=== PATIENT | female | born 1975 | race Caucasian/White ===

== ENCOUNTER → 2017-11-24 07:00 | Outpatient (CLI) | payer BC, SELFPAY ==
--- NOTE | 2017-11-24 07:00 | HPBI_ITS ---
MAMMOGRAPHY - BILATERAL SCREENING REASON FOR EXAM: Female, 42 years old. Routine annual screening examination. PERTINENT HISTORY: Non-contributory. TECHNIQUE: Digital bilateral breast martita (3D mammographic acquisition) in the CC and MLO projections. 2-D mediolateral oblique (MLO) and craniocaudad (CC) views of both breasts were obtained. CAD: Full Field Digital Mammography with Computer Added Detection was performed. COMPARISON: Comparison is made with prior study dated June 17, 2013. FINDINGS: Breast Composition: The breasts are almost entirely fatty. There is a stable 1 cm x 8.7 mm well-defined nodule in the mid retroareolar region of the right breast. This has increased slightly in size since prior examination and may represent a small cyst. Correlation with ultrasound is recommended. Stable small bilateral axillary lymph nodes. No other significant abnormalities are identified. HPBI/SCREENING MAMM (CAD), BILAT IMPRESSION: Slight enlargement of the well-defined nodular density in the mid retroareolar region of the right breast as described. Correlation with ultrasound is recommended. ASSESSMENT CATEGORY: BIRADS Category 0: Incomplete. Need additional imaging evaluation. A letter regarding these results will be sent to the patient by the facility within 30 days. Approximately 10% of breast cancers are not detected by mammography. A normal mammogram should not delay biopsy of a clinically suspicious abnormality. [id number] Electronically Signed: Hector Stringer MD at 8:53 EST Tel [phone], Service support ,
== END ==
PROVIDERS: Family Provider Family Medicine; PCP Family Medicine; Visit Provider Obstetrics & Gynecology
DX: Z12.31 Encounter for screening mammogram for malignant neoplasm of breast (principal)
CPT/HCPCS: 77063; 77067

== ENCOUNTER → 2017-11-27 07:40 | Outpatient (CLI) | payer BC, SELFPAY ==
--- NOTE | 2017-11-27 07:45 | US_ITS ---
STUDY: ULTRASOUND BREAST - RIGHT REASON FOR EXAM: Female, 42 years old. Abnormal screening mammogram. TECHNIQUE: Axial and longitudinal images of the RIGHT breast were performed with a high resolution ultrasound transducer. COMPARISON: Comparison is made with prior mammogram dated November 24, 2017. FINDINGS: RIGHT Breast: There is a 7 mm x 5 mm x 5 mm cyst at the 12:00 position breast in the retroareolar region. This corresponds to the mammographic findings. US/Breast Limited Unilateral IMPRESSION: The mammographic abnormality corresponds to a 7 mm x 5 mm x 5 mm cyst. Routine annual mammographic follow-up is recommended. ASSESSMENT CATEGORY: BIRADS Category 2: Benign. A letter regarding these results will be sent to the patient by the facility within 30 days. Electronically Signed: Hector Stringer MD at 9:31 EST Tel [phone], Service support ,
== END ==
PROVIDERS: Family Provider Family Medicine; PCP Family Medicine; Visit Provider Obstetrics & Gynecology
DX: N63.0 Unspecified lump in unspecified breast (principal)
CPT/HCPCS: 76642

== ENCOUNTER 2023-06-06 12:13 | Emergency (ER) | payer MEDICAID, SELFPAY ==
[2023-06-06 12:14] VITALS: BP 139/73; PULSE 62; RESP 14; TEMP 36.2; O2SAT 100; BMI 35.2
--- NOTE | 2023-06-06 14:30 | EKG12_ITS ---
Test Reason : CP Blood Pressure : / mmHG Vent. Rate : 063 BPM Atrial Rate : 063 BPM P-R Int : 152 ms QRS Dur : 082 ms QT Int : 414 ms P-R-T Axes : 003 -03 016 degrees QTc Int : 423 ms Normal sinus rhythm Normal ECG Confirmed by TIFFANIE TRIPLETT, JESSICA ([id number]), digital editor GALDINO RANDLE ([id number]) on 07/14/2023 12:51:10 PM Referred By: ETELVINA/ZENIA Confirmed By:SHARON MORENO MD
[2023-06-06] MEDS: Aspirin 81 MG TAB.CHEW 324 MG PO (14:41)
--- NOTE | 2023-06-06 14:43 | RAD_ITS ---
STUDY: X-RAY CHEST REASON FOR EXAM: Female, 48 years old. Chest pain . Tingling of the upper extremities and shortness of breath. TECHNIQUE: PA and lateral views of the chest. COMPARISON: None. FINDINGS: EKG electrodes are seen. The lungs are clear and expanded. Mild elevation of the anterior aspect of the right hemidiaphragm. There is no demonstrated pleural abnormality. Normal size heart. Normal mediastinum and delfino. Normal visualized pulmonary arteries. Normal visualized aortic arch and descending thoracic aorta. There is demineralization of the osseous structures. Normal visualized ribs, clavicles, and shoulders. There is no demonstrated abnormality of the visualized soft tissue structures of the upper abdomen. RAD/Chest PA and Lateral IMPRESSION: No acute abnormality is seen. Electronically Signed: Hector Stringer MD at 14:57 EDT ,
[2023-06-06 14:57] LABS: Absolute Lymphocyte Count 5.54 X10^3/uL (0.83-4.51); Absolute Neutrophil Count 6.3 X10^3/uL (2.0-7.7); Basophil# 0.09 X10^3/uL; Basophil% 0.7 % (0-1); Eosinophil# 0.22 X10^3/uL; Eosinophils% 1.7 % (0-5); Hematocrit 46.7 % (37-47); Lymphocyte # 5.54 X10^3/ul (0.83-4.51); Lymphocyte % 42.5 % (19-41); Mean Corp Hgb Conc 32.1 g/dL (32-36); Mean Corpuscular Hgb 28.2 pg (27.0-32.0); Mean Corpuscular Volume 87.8 fL (81-99); Mean Platelet Vol. 9.8 fl (6.2-12.0); Monocyte# 0.73 X10^3/uL; Monocyte% 5.6 % (0-10); NRBC Flagged by Analyzer 0 % (0-5); Neutrophil # 6.34 X10^3/uL (2.7-7.7); Neutrophil % 48.7 % (47-70); POSITIVE DIFFERENTIAL YES; Platelet Count 389 K/mm3 (150-450); RBC Distribution Width CV 13.2 % (11.6-14.6); RBC Distribution Width SD 42.5 fl (35.1-43.9); Red Blood Count 5.32 M/mm3 (4.2-5.4)
[2023-06-06 15:05] LABS: Differential Indicated SCAN CRITERIA MET
[2023-06-06 15:15] LABS: Anion Gap 7 (5-15); BUN 9 mg/dL (7-18); BUN/Creat Ratio 15.9 RATIO (10-20); Calcium,Total 9.1 mg/dL (8.5-10.1); Chloride 104 mmol/L (98-107); Creatinine, Serum 0.57 mg/dL (0.55-1.02); EST Glomerular Filtration Rate 122 mL/min (>60); Est Glom Filt Rate - Afr Amer 148 mL/min (>60); Estimated Creatinine Clearance 97.54 ml/min; Glucose 91 mg/dL (74-106); Potassium 3.6 mmol/L (3.5-5.1); Sodium Level 140 mmol/L (136-145); Troponin-I HS (w/2H Reflex) < 3 pg/mL (3.0-54.0)
[2023-06-06 15:42] LABS: Differential Comment SCANNED
[2023-06-06 15:48] VITALS: BP 124/79; PULSE 68; RESP 14; O2SAT 95
--- NOTE | 2023-06-06 16:20 | ED.VIS.CHEST ---
HPI History of Present Illness Chief Complaint: Chest Pain Detail of Chief Complaint: Sharp midsternal chest pain Informant: patient Onset/Context/Timing Onset: Today and Hours (Approximately 10:30 AM) Activity at onset: sudden Timing: Continuous and Waxes and wanes Quality: Positive for Burning (She now complains of a burning sensation through to her back.), Sharp (Initially sharp and stabbing) and Stabbing Location: Substernal Current Severity: Mild Maximum Severity: Severe Worsened By: Nothing Relieved By: Nothing Associated Symptoms: Positive for Nausea, Diaphoresis and Dyspnea; Negative for Vomiting, Cough, Fever, Lightheadedness, Acid Reflux or Palpitations Narrative Narrative: Patient is a 48-year-old woman with no significant past medical history. She is a non-smoker. There is no family history of coronary disease at a young age. She has no risk factors for coronary disease. She denies history of GERD, reflux, hiatal hernia, peptic ulcer disease. Denies black or maroon stool. She had Maltese toast for breakfast. She denies intolerance to greasy or fried foods. Mother had gallbladder removed. She denies problems with her about gallbladder. She denies recent upper respiratory tract symptoms. She denies pleuritic chest pain. She denies history of PE. She denies leg pain, swelling or discoloration. She denies recent immobilization or surgery. She denies black or maroon-colored stool. She denies urologic symptoms. Patient states she was sitting when her symptoms started. Was a sharp pain mid chest began to dissipate. Within 5 minutes of onset pain got worse. She now complains of a burning associate in the back of her back. She did have a panic attack. She did report diaphoresis and shortness of breath. Prior Similar Symptoms: No Recent Illness/Hospitalization: No CVD Risk Factors: Negative for Hypertension, Diabetes, Hypercholesterolemia, Family History 1' </=55 or Smoking PE Risk Factors: Negative for Recent Travel/Surgery, Recent Immobilization, Prior DVT or PE, Cancer or OCP + Smoking + >/=35 TAD Risk Factors: Negative for Marfan's Syndrome, Hypertension or Family History PFSH PFSH Home Medications L.acidoph, paracasei,B. lactis 10 billion cell capsule 1 ea PO DAILY 07/11/16 [History Last Taken Unknown] multivitamin with folic acid 400 mcg tablet (Thera) 1 tab PO DAILY 07/11/16 [History Last Taken Unknown] vitamins B1 2.5 mg-B2 2.5 mg-niacin 5 mg-B12 100 mcg-protease tablet (B-Complex With B-12) 1 ea PO QMONTH 07/11/16 [History Last Taken Unknown] docusate sodium 100 mg capsule (DOK) 100 mg PO BID PRN PRN Constipation ##60 07/15/16 [Rx Last Taken Unknown] estradiol 2 mg tablet (Estrace) 2 mg PO DAILY #100 tabs 07/15/16 [Rx Last Taken Unknown] oxycodone 5 mg tablet 5 - 10 mg (1 - 2 x 5 mg) PO Q4H PRN PRN Mod-Severe Pain (-07/15) ##20 07/15/16 [Rx Last Taken Unknown] Allergy/AdvReac Type Severity Reaction Status Date / Time tramadol AdvReac Other Verified 06/06/23 12:14 Social History (Updated 06/06/23 @ 16:[address] Rishi Perales MD) household members: spouse Smoking Status: Former smoker details: Patient states she cannot drink because she becomes sick after 1 or 2 sips. substance use type: does not use ROS ROS ED Constitutional Constitutional ED: Denies chills, fever(s), subjective, sweats or weight loss Eyes Eyes: Reports none ENT ENT ED: Denies ear pain, rhinorrhea or sore throat Cardiovascular Cardiovascular: Reports as per HPI; Denies orthopnea or paroxysmal nocturnal dyspnea Respiratory/Chest Respiratory/Chest: Reports dyspnea; Denies cough, dyspnea on exertion, orthopnea or paroxysmal nocturnal dyspnea Gastrointestinal Gastrointestinal: Denies abdominal pain, constipation, diarrhea, melena or vomiting Genitourinary Genitourinary ED: Denies dysuria, hematuria or urinary frequency Musculoskeletal Musculoskeletal: Reports back pain; Denies arthralgias, myalgias or neck pain Integumentary Denies abscess, Abrasions or rash Neurologic Neurologic: Reports paresthesias RUE and LUE; Denies headache(s) Psychiatric Psychiatric: Reports anxiety Endocrine Endocrinology: Denies cold intolerance or heat intolerance Hematologic/Lymphatic Hematologic/Lymphatic: Denies easy bleeding or easy bruising Allergic/Immunologic Allergic/Immunologic ED: Denies mouth swelling, tongue swelling or urticaria EXAM Physical Exam Const Vital Signs: 06/06/23 12:14 06/06/23 13:58 06/06/23 14:30 Temperature 97.2 F L Temperature Source Temporal Pulse Rate 62 Respiratory Rate 14 Respiratory Pattern Normal Blood Pressure 139/73 H Blood Pressure Mean 95 Pulse Ox 100 Oxygen Delivery Method Room Air Room Air 06/06/23 15:48 06/06/23 17:00 Temperature Temperature Source Pulse Rate 68 70 Respiratory Rate 14 18 Respiratory Pattern Blood Pressure 124/79 H 128/78 H Blood Pressure Mean 94 94 Pulse Ox 95 Oxygen Delivery Method Room Air Room Air Positive well nourished, well developed and obese General Appearance ED: well developed and NAD; Negative for pallor Nutritional Appearance: obese HEENT Reports TM's clear and moist mucous membranes Tympanic Membrane ED: Yes TM's clear Eyes PERRL and EOMs intact bilaterally General Eye ED: Negative for pale conjunctiva or scleral icterus Neck no lymphadenopathy, supple and no JVD Chest Wall inspection of chest normal and palpation of chest normal Chest: Negative for tenderness Resp normal respiratory effort and clear to auscultation bilaterally Cardio regular rate, regular rhythm, S1 normal heart sound, S2 normal heart sound and no murmurs GI normal to inspection, nondistended, normoactive bowel sounds, soft to palpation, non-tender and non-distended; Negative for hepatosplenomegaly or no masses GI Narrative: Negative clinical Meeks's sign. Back/Spine no CVA tenderness Back/Spine Narrative: SPECT of the back is normal Extremity normal to inspection Extremity Narrative: There is no sign of peripheral arterial disease. General Extremety ED: Negative for edema, pulses abnormal or tenderness General Extremity: Negative for edema or pulses abnormal Neuro oriented x3, CN's II-XII intact bilaterally, no sensory deficits noted and gait normal Sensorium / Orientation: awake and alert Psych mental status grossly normal Skin no rashes or lesions noted and no wounds General Skin Exam: Negative for jaundice or pallor MDM MDM MDM Narrative Medical decision making narrative: Presents with chest discomfort. Differential diagnoses to be cardiac versus noncardiac. Noncardiac would include reflux, hiatal hernia peptic ulcer disease, pulmonary, history is not suggestive or consistent with thoracic aortic dissection. Biliary disease is a possibility. Work-up included EKG, chest x-ray and blood work History & Record Review Discussion w/independent historian: Patient and Significant other Additional record(s) reviewed:: Prior ED visit and Prior labs Lab Data Attestation: I reviewed the patient's lab results. Lab results narrative: White count is slightly elevated with lymphocytosis. Electrolyte panel is normal. First troponin is less than 3. 2-hour troponin is pending. Patient was informed of her chest x-ray, EKG results and as well as laboratory results at approximately 1610. 2-hour troponin is 3. Since both are less than 4 negative predictive value is 100%. Patient was informed the cause of her pain is uncertain. Suspect this is probably GI in etiology. She is scheduled for a colonoscopy next week. Labs: Laboratory Results - last 24 hr 06/06/23 06/06/23 14:04 16:52 WBC 13.0 H RBC 5.32 Hgb 15.0 Hct 46.7 MCV 87.8 MCH 28.2 MCHC 32.1 RDW Std Deviation 42.5 RDW Coeff of Lenonx 13.2 Plt Count 389 MPV 9.8 Immature Gran % (Auto) 0.800 Neut % (Auto) 48.7 Lymph % (Auto) 42.5 H Mckean % (Auto) 5.6 Eos % (Auto) 1.7 Baso % (Auto) 0.7 Absolute Neuts (auto) 6.3 Absolute Lymphs (auto) 5.54 H Nucleated RBC % 0 Differential Comment SCANNED Sodium 140 Potassium 3.6 Chloride 104 Carbon Dioxide 29.0 Anion Gap 7 BUN 9 Creatinine 0.57 Estim Creat Clear Calc 97.54 Est GFR (MDRD) Af Amer 148 Est GFR (MDRD) Non-Af 122 BUN/Creatinine Ratio 15.9 Glucose 91 Calcium 9.1 Troponin I High Sens < 3 L 3 Radiography Diagnostic Testing: Clinical Impression(s) from Imaging Studies Chest X-Ray 06/06/23 14:43 IMPRESSION: No acute abnormality is seen. Electronically Signed: Hector Stringer MD at 14:57 EDT , EKG Initial EKG: Attestation: I personally reviewed and interpreted this EKG as follows: Interpretation: Sinus Rhythm (EKG is normal. Rate is 63. ID interval is 102 ms. QRS duration 82 ms. QT duration is 414 ms. Landing is normal. This is with patient having a burning discomfort in her mid back.) Discharge Plan Triage Chief Complaint: Chest Pain ED Provider: Rishi Perales Dx/Rx/DC Orders Clinical Impression: Panic attack, Central chest pain Instructions: ED Chest Pain, Noncardiac (Child) Prescriptions: No Action multivitamin with folic acid [Thera] 1 TABLET tablet 1 tab PO DAILY Patient Comments: SUPPLEMENT vitamins [id number] [B-Complex With B-12] 1 EACH tablet 1 ea PO QMONTH Patient Comments: SUPPLEMENT L.acidoph, paracasei,B. lactis 1 EACH capsule 1 ea PO DAILY Patient Comments: SUPPLEMENT estradiol [Estrace] 2 MG tablet 2 mg PO DAILY Qty: 100 4RF Patient Comments: HORMONE oxycodone 5 MG tablet 5 - 10 mg PO Q4H PRN PRN (Reason: Mod-Severe Pain (4-1010)) Qty: 20 0RF Patient Comments: PAIN docusate sodium [DOK] 100 MG capsule 100 mg PO BID PRN PRN (Reason: Constipation) Qty: 60 1RF Patient Comments: CONSTIPATION Primary Care Provider: OLI DYER Referrals: OLI DYER [Other] - 1 Week Disposition Disposition: Home, Self Care
[2023-06-06 16:51] LABS: Reflex Troponin-HS? (from REC) Y
[2023-06-06 17:00] VITALS: BP 128/78; PULSE 70; RESP 18
[2023-06-06 17:30] LABS: Troponin-I HS 3 pg/mL (3.0-54.0)
== END 2023-06-06 18:12 | disposition home or self-care (01) ==
PROVIDERS: Emergency Provider Emergency Medicine; Visit Provider Emergency Medicine
DX: R07.89 Other chest pain (principal); Z87.891 Personal history of nicotine dependence; F41.0 Panic disorder [episodic paroxysmal anxiety]
CPT/HCPCS: 71046; 80048; 84484; 85025; 93005; 99283; A4216

== ENCOUNTER 2024-03-10 15:57 | Emergency (ER) | payer OTHER, SELFPAY ==
[2024-03-10 15:58] VITALS: BP 155/83; PULSE 120; RESP 18; TEMP 37.1; O2SAT 99; BMI 34.2
[2024-03-10 16:00] VITALS: BP 155/83; PULSE 120; RESP 18; TEMP 37.1; O2SAT 99
[2024-03-10] MEDS: 0.9% Normal Saline (1000mL) 1,000 ML 999 ML IV (16:26)
[2024-03-10 16:35] LABS: Absolute Lymphocyte Count 1.76 X10^3/uL (0.83-4.51); Absolute Neutrophil Count 9.3 X10^3/uL (2.0-7.7); Basophil# 0.06 X10^3/uL; Basophil% 0.5 % (0-1); Eosinophil# 0.01 X10^3/uL; Eosinophils% 0.1 % (0-5); Hematocrit 49.5 % (37-47); Hemoglobin 16.5 g/dL (12.0-15.0); Lymphocyte # 1.76 X10^3/ul (0.83-4.51); Lymphocyte % 14.9 % (19-41); Mean Corp Hgb Conc 33.3 g/dL (32-36); Mean Corpuscular Hgb 28.2 pg (27.0-32.0); Mean Corpuscular Volume 84.5 fL (81-99); Mean Platelet Vol. 9.4 fl (6.2-12.0); Monocyte# 0.64 X10^3/uL; Monocyte% 5.4 % (0-10); NRBC Flagged by Analyzer 0 % (0-5); Neutrophil # 9.26 X10^3/uL (2.7-7.7); Neutrophil % 78.7 % (47-70); Platelet Count 332 K/mm3 (150-450); RBC Distribution Width CV 13.1 % (11.6-14.6); RBC Distribution Width SD 40.6 fl (35.1-43.9); Red Blood Count 5.86 M/mm3 (4.2-5.4); White Blood Count 11.8 K/mm3 (4.4-11.0)
[2024-03-10 16:47] LABS: ALB/GLOB Ratio 0.7 RATIO (0.9-2.4); AST(SGOT) 38 U/L (15-37); Alanine Aminotransfer ALT/SGPT 66 U/L (13-56); Albumin, Serum 3.5 g/dL (3.2-5.0); Alkaline Phosphatase 122 U/L (45-117); Anion Gap 11 (5-15); BUN 12 mg/dL (7-18); BUN/Creat Ratio 13.1 RATIO (10-20); Calcium,Total 9.4 mg/dL (8.5-10.1); Chloride 101 mmol/L (98-107); Creatinine, Serum 0.92 mg/dL (0.55-1.02); EST Glomerular Filtration Rate 70 mL/min (>60); Est Glom Filt Rate - Afr Amer 84 mL/min (>60); Estimated Creatinine Clearance 77.23 ml/min; Globulin 4.7 g/dL (2.2-4.2); Glucose 171 mg/dL (74-106); Lipase 30 U/L (13-75); Potassium 3.1 mmol/L (3.5-5.1); Protein, Total 8.2 g/dL (6.4-8.2); Sodium Level 134 mmol/L (136-145)
[2024-03-10] MEDS: Doxycycline 100 MG in Dextrose 5%-Water (250mL Bag) 250 ML 250 MG IV ×2 (17:23→18:24)
[2024-03-10 17:58] VITALS: BP 144/76; PULSE 105; RESP 18; O2SAT 95
[2024-03-10] MEDS: Ondansetron 4 MG/2 ML Vial IV (18:48)
[2024-03-10 21:00] VITALS: BP 124/75; PULSE 70; PULSE 74; RESP 16; TEMP 36.6; O2SAT 99
[2024-03-10] MEDS: SUMAtriptan 6 MG/0.5 ML Vial SC (21:18)
--- NOTE | 2024-03-10 21:39 | EX.ED.DYSGE1 ---
HPI History of Present Illness Chief Complaint: Fever Narrative Narrative: 48-year-old female presents with a target lesion on her left thigh, nausea and vomiting after taking doxycycline. She relates history that she was walking in shorts through tall grass on Friday 5 days ago. A few days later, she noticed target lesion on her left thigh. She did not see a tick or remove 1 but assumes that she got bit by 1. Over the last few days, she has had decreased appetite and has not really eaten anything. She has felt malaise and fatigue as well. She states that she saw her primary care provider today, who put her on 7 days of doxycycline. Afterwards, she developed epigastric abdominal pain and vomited back up. Although she states when she came to the emergency department that she has Lyme disease, she states that it was her primary care provider that told her today that she has it. PFSH PFSH Home Medications ?Medication ?Instructions ?Recorded ?Last Taken ?Type L.acidoph, paracasei,B. lactis 10 1 ea PO DAILY 07/11/16 Unknown History billion cell capsule multivitamin with folic acid 400 1 tab PO DAILY 07/11/16 Unknown History mcg tablet (Thera) vitamins B1 2.5 mg-B2 2.5 1 ea PO QMONTH 07/11/16 Unknown History mg-niacin 5 mg-B12 100 mcg-protease tablet (B-Complex With B-12) docusate sodium 100 mg capsule 100 mg PO BID PRN PRN Constipation 07/15/16 Unknown Rx (DOK) ##60 estradiol 2 mg tablet (Estrace) 2 mg PO DAILY #100 tabs 07/15/16 Unknown Rx oxycodone 5 mg tablet 5 - 10 mg (1 - 2 x 5 mg) PO Q4H 07/15/16 Unknown Rx PRN PRN Mod-Severe Pain (-07/15) ##20 ondansetron 4 mg disintegrating 4 mg PO Q8H PRN PRN Nausea #10 tabs 03/10/24 Unknown Rx tablet potassium chloride 20 mEq 20 meq PO BID #6 tabs 03/10/24 Unknown Rx tablet,extended release Allergy/AdvReac Type Severity Reaction Status Date / Time tramadol AdvReac Other Verified 03/10/24 16:00 Social History household members: spouse Smoking Status: Former smoker details: Patient states she cannot drink because she becomes sick after 1 or 2 sips. substance use type: does not use ROS ROS ED ROS Narrative Patient endorses malaise and fatigue, has target lesion on left anterior thigh. After taking doxycycline she endorses nausea and vomiting as well as epigastric abdominal pain. EXAM Physical Exam Narrative Exam Narrative: Afebrile. Vital signs noted. Nontoxic-appearing. HEENT: Normocephalic. Atraumatic. PERRL, EOMI. Neck soft and supple. No point tenderness or step off. Cardiovascular: Regular rate and rhythm. No murmurs, rubs, or gallops appreciated. Respiratory: No tachypnea. Lungs clear to auscultation bilaterally. Gastrointestinal: Abdomen soft, mild tenderness in epigastrium with normoactive bowel sounds. No rebound or guarding. Neurological: Awake. Alert. Nonfocal, nonlateralizing. Skin: No rash. Normal color. No pallor. Positive target style lesion left anterior thigh more towards inguinal area. Musculoskeletal: No pedal edema. Full range of motion extremities. Const Vital Signs: 03/10/24 15:58 03/10/24 15:58 03/10/24 16:00 Temperature 98.8 F 98.8 F Temperature Source Temporal Temporal Pulse Rate 120 H 120 H Respiratory Rate 18 18 Respiratory Effort Normal Non-Labored Respiratory Pattern Normal Blood Pressure 155/83 H 155/83 H Blood Pressure Mean 107 107 Pulse Ox 99 99 Oxygen Delivery Method Room Air Room Air 03/10/24 17:58 03/10/24 21:00 03/10/24 21:00 Temperature 97.9 F Temperature Source Pulse Rate 105 H 70 74 Respiratory Rate 18 16 16 Respiratory Effort Respiratory Pattern Blood Pressure 144/76 H 124/75 H 124/75 H Blood Pressure Mean 98 91 91 Pulse Ox 95 99 99 Oxygen Delivery Method Room Air MDM MDM MDM Narrative Medical decision making narrative: As the patient did not see an actual tick, and I do not see any remnants left in the target lesion, I do feel that she was being treated for Lyme disease prophylaxis. Given her epigastric pain and nausea and vomiting, and the differential diagnosis is gastritis from doxycycline versus pancreatitis. She is afebrile here. I reviewed her laboratory work and she has slightly elevated white count of 11.8 which I think is nonspecific, hemoglobin slightly hemoconcentrated at 16.5 with hematocrit 49.5, platelet count normal at 332. Sodium slightly low at 134 with potassium 3.1. BUN of 12 and creatinine normal at 0.92. Glucose is appropriately elevated at 171, but she has normal anion gap of 11 so I do not think that she has diabetic ketoacidosis. Her lipase is normal at 30 so I doubt pancreatitis. I reviewed CDC guidelines which states that doxycycline 200 mg as a one-time dose is adequate prophylaxis for Lyme disease. I discussed this with the pharmacist. As she is having nausea and vomiting, 2 doses of doxycycline 100 mg were given intravenously. I did write her a prescription for 6 tablets of 20 mill equivalents of potassium chloride to supplement, and I wrote her a prescription for Zofran 10 tablets. I discussed with her that she does not need to take the rest of the oral prophylaxis medication because doxycycline is notorious for causing gastritis type symptoms. She had taken it on an empty stomach. My plan for her was for discharge. She did require a dose of Zofran here while her infusion of antibiotic was given. She told the RN that she had a headache prior to discharge. I was discussing with her whether or not to take the doxycycline, and I explained to her again that 200 mg as a one-time dose is adequate prophylaxis according to the CDC. She states that for her headaches she usually takes sumatriptan so she was given a subcutaneous injection of 6 mg. I do not feel that she requires observation or admission to the hospital at this time. I feel she can be discharged to follow-up with her primary care provider. Return instructions reviewed. Disposition is discharged home in stable condition. History & Record Review Discussion w/independent historian: Patient and Significant other Lab Data Attestation: I reviewed the patient's lab results. Labs: Laboratory Results - last 24 hr 03/10/24 16:15 WBC 11.8 H RBC 5.86 H Hgb 16.5 H Hct 49.5 H MCV 84.5 MCH 28.2 MCHC 33.3 RDW Std Deviation 40.6 RDW Coeff of Lennox 13.1 Plt Count 332 MPV 9.4 Immature Gran % (Auto) 0.400 Neut % (Auto) 78.7 H Lymph % (Auto) 14.9 L Summers % (Auto) 5.4 Eos % (Auto) 0.1 Baso % (Auto) 0.5 Absolute Neuts (auto) 9.3 H Absolute Lymphs (auto) 1.76 Nucleated RBC % 0 Sodium 134 L Potassium 3.1 L Chloride 101 Carbon Dioxide 22.0 Anion Gap 11 BUN 12 Creatinine 0.92 Estim Creat Clear Calc 77.23 Est GFR (MDRD) Af Amer 84 Est GFR (MDRD) Non-Af 70 BUN/Creatinine Ratio 13.1 Glucose 171 H Calcium 9.4 Total Bilirubin 0.40 AST 38 H ALT 66 H Alkaline Phosphatase 122 H Total Protein 8.2 Albumin 3.5 Globulin 4.7 H Albumin/Globulin Ratio 0.7 L Lipase 30 Discharge Plan Triage Chief Complaint: Fever Other Complaint: Nausea/Vomiting ED Provider: Rodolfo Underwood Dx/Rx/DC Orders Clinical Impression: Nausea and vomiting, Hypokalemia, Tick bite Instructions: ED Hypokalemia, ED Tick Bite, Antibiotic Treatment Prescriptions: New ondansetron 4 mg tablet,disintegrating 4 mg PO Q8H PRN PRN (Reason: Nausea) Qty: 10 0RF potassium chloride 20 mEq tablet extended release 20 meq PO BID Qty: 6 0RF No Action multivitamin with folic acid [Thera] 1 TABLET tablet 1 tab PO DAILY Patient Comments: SUPPLEMENT vitamins [id number] [B-Complex With B-12] 1 EACH tablet 1 ea PO QMONTH Patient Comments: SUPPLEMENT L.acidoph, paracasei,B. lactis 1 EACH capsule 1 ea PO DAILY Patient Comments: SUPPLEMENT estradiol [Estrace] 2 MG tablet 2 mg PO DAILY Qty: 100 4RF Patient Comments: HORMONE oxycodone 5 MG tablet 5 - 10 mg PO Q4H PRN PRN (Reason: Mod-Severe Pain (4-10/10)) Qty: 20 0RF Patient Comments: PAIN docusate sodium [DOK] 100 MG capsule 100 mg PO BID PRN PRN (Reason: Constipation) Qty: 60 1RF Patient Comments: CONSTIPATION Primary Care Provider: [facility],Out of Referrals: [facility],Out of [Primary Care Provider] - Print Language: Hungarian Disposition Disposition: Home, Self Care Discharge Date/Time: 03/10/24 21:24
== END 2024-03-10 21:24 | disposition home or self-care (01) ==
PROVIDERS: Emergency Provider Emergency Medicine; Visit Provider Emergency Medicine
DX: R11.2 Nausea with vomiting, unspecified (principal); E87.6 Hypokalemia; Z87.891 Personal history of nicotine dependence; R50.9 Fever, unspecified; S70.362A Insect bite (nonvenomous), left thigh, initial encounter; W57.XXXA Bitten or stung by nonvenomous insect and other nonvenomous arthropods, initial encounter
CPT/HCPCS: 80053; 83690; 85025; 96361; 96365; 96366; 96372; 96375; 99283; J7030; A4216; J2405